=== PATIENT | female | born 1995 | race Caucasian/White ===

== ENCOUNTER → 2022-09-02 10:36 | Outpatient (CLI) | payer OTHER, SELFPAY ==
--- NOTE | 2022-09-02 | DI.US.S_ITS ---
PROCEDURE: US OB >= 14 WEEKS FETUS INDICATIONS: 20WK ANATOMY SCAN OUTSIDE/PRIOR DATING DATA: Last menstrual period (LMP): 03/21/2022. LMP-based estimated date of delivery (ANUEL): 12/26/2022. First dating scan (date and location): None listed. Estimated date of delivery (ANUEL) from first dating scan: Not applicable The calculations are made using the working ANUEL of 12/26/2022. TECHNIQUE: Real-time scanning was performed of the fetus, with image documentation and biometric measurements. Endovaginal scanning: Not performed COMPARISON: None. FINDINGS: General: A single living intrauterine gestation is present. Presentation: Vertex. Placenta: Placental position is posterior and to the right , without previa. Amniotic fluid index: 14.1 cm, normal range is 5-24 cm. Single deepest vertical pocket is 4.3 cm. heart rate: 147 beats per minute. Maternal cervical canal: 5.6 cm long. Normal lower limit is 2.5 cm. Report any funneling of internal cervical os: % of canal length, shape (U or V), width or any U-shaped funneling. biometrics: Biparietal diameter: 5.7 cm, 23 weeks 2 days Head circumference: 20.9 cm, 23 weeks 0 days Abdominal circumference: 18.0 cm, 22 weeks 6 days Femur length: 3.7 cm, 21 weeks 6 days Clinically estimated gestational age: 23 weeks 4 days Composite gestational age from present scan: 22 weeks 5 days Estimated weight and percentile: 511 g, 8th percentile Anatomic survey: Neuro: Ventricles are non-dilated at less than 10 mm. Cisterna magna is normal at 3-11 mm. Cerebellum is normal in size and morphology. Nuchal skin fold: Normal at less than 6 mm between 14-21 weeks gestational age. Face: Nose and lips, facial profile are normal. Spine: No evidence for spina bifida. Heart: 4-chambered heart is present, with normal ventricular outflow tracts. Diaphragm: Diaphragm is intact. Stomach: Left-sided stomach is present. Kidneys: No hydronephrosis. Normal is less than 5 mm in 2nd trimester, less than 7 mm in 3rd trimester. Cord: 3-vessel cord has orthotopic insertion. Bladder: Normal in size. Extremities: All 4 extremities identified. IMPRESSION: 1. Living 2nd trimester intrauterine with no sonographic evidence of complications. Current ultrasound age is 6 days less than clinical age based on LMP. 2. Normal 2nd trimester anatomy study. We strive to produce accurate, complete, and clear reports of imaging services. To assist us in improving patient care, this report was composed using standard report templates and voice recognition software. Therefore, it may contain abnormal punctuation, insertions and/or omissions. Occasional wrong-word or sound-alike substitutions may occur. Though we review the report and make efforts to correct it, we do recommend that the report be read carefully in proper context to recognize any text inaccuracies. Dictated by: Bello Hoyt M.D. on 09/02/2022 at 13:55 Approved by: Bello Hoyt M.D. on 09/02/2022 at 14:00
== END ==
PROVIDERS: Referring Provider Advanced Practice Midwife; Visit Provider Advanced Practice Midwife
DX: Z34.82 Encounter for supervision of other normal pregnancy, second trimester (principal); Z3A.22 22 weeks gestation of pregnancy
CPT/HCPCS: 76811

== ENCOUNTER 2022-11-28 10:15 | Observation (INO) | payer OTHER, SELFPAY ==
--- NOTE | 2022-11-28 10:31 | PM.OBTRLD ---
Visit Information Visit Information Date of evaluation: 11/28/22 Primary OB Provider: Beba Corrales On-call OB Provider: Annette Cordova Reason for Evaluation: Yes pre-term labor Comments/Additional reasons for admission: Kim is a 27YO @ 35 weeks 0 days by 9w US who presents for evaluation of contractions. Had contractions yesterday morning that eventually eased and again, but more painful this morning starting at 0100 and strengthening around 0630. +FM. No vaginal bleeding or leaking of fluid. Hx of term NSVB. Uncomplicated care with CNMs and planning a home . Vital Signs Vital Signs: BP 132/76, HR 106, T 35.8C Temporal PFSH Medical History (Updated 11/28/22 @ 12:19 by Annette Cordova CNM) Anxiety Migraines PTSD (post-traumatic stress disorder) Review of Systems Review of Systems ROS: Yes All systems reviewed with the patient and are negative except as otherwise documented Exam Vital Signs (past 8 hours): see above Presentation: vertex Objective Labs Labs: GBS PCR- Negative Evaluation Evaluation Baseline heart rate: 135 Variability: Moderate (11-25) monitor accelerations: Present Monitor Decelerations: Absent Contraction Frequency (minutes): 10 Uterine Contraction Intensity: Mild Category of Tracing: Reactive Cervical dilation (cm): 1 Cervical effacement (%): 50 station: -2 Comments: CE unchanged after 2 hours Diagnosis, Plan/Disposition Final Diagnosis (1) False labor before 37 completed weeks of gestation during in third trimester, antepartum: Status: Acute Plan/Disposition Plan: Reassurance given for no concern for labor at this time. Discharge to home with routine labor precautions. OB Disposition: home
[2022-11-28] MEDS: CALCIUM CARBONATE 500 MG TAB 1000 MG PO (11:18)
[2022-11-28 11:47] LABS: Strep Grp B PCR NEG for Grp B Strep
[2022-11-28 13:34] LABS: Appearance Urine UA CLEAR; Bilirubin Urine UA NEGATIVE (NEGATIVE); Color Urine UA YELLOW; Glucose Urine UA NEGATIVE (Negative); Ketones Urine UA NEGATIVE (NEGATIVE); Leukocyte Esterase Urine UA NEGATIVE (NEGATIVE); Nitrite Urine UA NEGATIVE (Negative); Occult Blood Urine UA NEGATIVE (Negative); Protein Urine UA NEGATIVE (Negative); Specific Gravity Urine UA 1.025 (1.000-1.035); Urobilinogen Urine UA 0.2 E.U./dL (0.2)
== END 2022-11-28 13:05 | disposition home or self-care (01) ==
LOC: LABOR 10:19
PROVIDERS: Admitting Provider Nurse Practitioner Obstetrics & Gynecology; Referring Provider Nurse Practitioner Obstetrics & Gynecology; Visit Provider Nurse Practitioner Obstetrics & Gynecology
DX: O47.03 False labor before 37 completed weeks of gestation, third trimester (principal); Z3A.35 35 weeks gestation of pregnancy
CPT/HCPCS: 59025; 59050; 81003; 87081; 87653; G0378; G0379

== ENCOUNTER 2022-12-24 12:14 | Inpatient (IN) | payer OTHER, SELFPAY ==
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
--- NOTE | 2022-12-24 13:19 | PM.CN ---
History of Present Illness Consult details Date Patient Seen: 12/24/22 Time Patient Seen: 13:19 Chief complaint: Induction Reason for consult: Induction for functional neurological disorder at 38 weeks 5 days Requesting provider: Annette Cordova Narrative: Patient is a 27-year-old who is being admitted for induction for concerns for episodes where the patient apparently loses consciousness for up to 30 minutes. She has been evaluated and it is thought they are not seizures. She does not have tonic-clonic motion. She does not have difficulty with breathing. EEG and vital sign monitoring performed at the [facility] show no abnormalities. She responds to pain stimuli. Sometimes she can respond to basic commands. These might be a form of migraine or a psychiatric reaction to stress. Patient and her provider are concerned about if she needs any emergency care during labor and is unable to respond that we are prepared ahead of time for that possibility. Patient also had discussed tubal ligation with Beba Corrales CNM several weeks ago and is absolutely sure she does not want more children so if she has a section she would like a bilateral salpingectomy. We discussed section for indications. Patient will continue to discuss with family and midwives if there is a point to proceed with section if the patient remains unresponsive for greater than 1and 1/2 hours. Consent form for section with bilateral salpingectomy reviewed with the patient. Risk of reaction to medication or anesthesia, infection, bleeding that could require blood transfusion which she is agreeable to, damage to internal structures such as bowel, bladder, ureters that could require repair or additional surgery. Patient is aware she will not be able to conceive a with her salpingectomy. Consent form signed and questions answered. Meds Home Medications and Allergies Home Medications Medication Instructions Recorded Confirmed Type escitalopram oxalate 5 mg PO DAILY depression 12/24/22 12/24/22 History Allergies Allergy/AdvReac Type Severity Reaction Status Date / Time No Known Drug Allergies Allergy Verified 11/28/22 11:15 Objective Labs 12/24/22 14:10 [facility] Medical History Anxiety Functional neurological symptom disorder with mixed symptoms Hypothyroid Migraines PTSD (post-traumatic stress disorder) Family History Grandfather Cancer Mother Hypothyroid Sister Depression Heart murmur Brother Heart murmur Assessment & Plan Assessment and plan (1) Functional neurological symptom disorder with mixed symptoms: Status: Acute (2) 38 weeks gestation of : Status: Acute Assessment & Plan narrative: Patient being induced for functional neurological disorder with worsening symptoms. Patient and her providers requested OB consultation and availability if needed. If there becomes a need for section and patient is unresponsive we preemptively signed consent form for section and tubal ligation.
[2022-12-24 14:16] VITALS: BP 124/88; PULSE 117; TEMP 36.3
[2022-12-24 15:45] LABS: Add Manual Diff / Slide Review NO; Basophils Absolute Auto 0 /uL (0-100); Basophils Percent Auto 0.6 % (0-2); Eosinophils Absolute Auto 0 /uL (0-450); Eosinophils Percent Auto 0.5 % (2-4); Hematocrit 36.8 % (36-46); Hemoglobin 12.6 g/dL (12.0-16.0); Lymphocytes Absolute Auto 2500 /uL (1100-4500); Lymphocytes Percent Auto 31.9 % (25-40); Mean Corpuscular HGB Conc 34.3 % (30-36); Mean Corpuscular Hemoglobin 30.8 PG (26-34); Monocytes Absolute Auto 700 /uL (0-900); Monocytes Percent Auto 9.5 % (3-14); Neutrophils Absolute Auto 4500 /uL (1500-7000); Neutrophils Percent Auto 57.5 % (50-75); Platelet Count 215 X10^3/uL (150-400); Red Blood Cell Count 4.09 X10^6/uL (4.0-5.2); Red Cell Distribution Width 13.5 % (11.6-14.8); White Blood Cell Count 7.9 X10^3/uL (4.5-11.0)
[2022-12-24] MEDS: OXYTOCIN PREMIX 30 UNIT/500 ML PLAST..BAG IV (16:08)
--- NOTE | 2022-12-24 17:06 | P.PNOB_ITS ---
Date/Time Date Patient Seen: 12/24/22 Time Patient Seen: 17:07 Pain Control Pain control: tolerating well Comments: Kim is resting comfortably in bed eating dinner, with her Myles at bedside. She is feeling good about induction process, has felt only a few notable contractions since starting pitocin infusion. Had an episode of non- epileptic seizure activity which included loss of motor control and eye fluttering at 1548, lasting for 5 minutes. Myles called RN to the bedside, vital signs remained stable and Kim was able to respond to questions again two minutes after resolution of episode. VS: BP: 117/77 mmHg HR: 99 bpm Sp02: 98% T: 36.3C Pelvic Exam Comments: CE deferred Contractions Monitor mode: External Pitocin rate (mU/min): 4 Contraction frequency (min): 10 (occasional) Contraction duration (min): 1 Contraction pattern: Irregular Contraction intensity: Mild Status status: Category l Heart Rate Baseline: 125 Monitor Accelerations: Present Monitor Decelerations: Absent Monitor Variability: Moderate Assessment and Plan Assessment: induction ongoing Plan: continuous present management Comments: A: Term multipara IOL, early labor Non-epileptic seizure, consistent with functional neurologic disorder No signs of infection FHR Cat 1 P: Continue Pitocin per protocol Labor support Encourage both rest and movement Discussed AROM as induction tool that can be considered if contractions do not intensify with Pitocin Reassess in 4 hours or sooner PRN
--- NOTE | 2022-12-24 21:06 | PM.OBPNLAB ---
Date/Time Date Patient Seen: 12/24/22 Time Patient Seen: 21:00 Pain Control Comments: Kim is walking in her labor room, starting to feel regular mild contractions. Physically feeling well, struggling with the boredom of waiting for labor to start, eager to get things going. VS: 138/82 mmHg P: 87 bpm RR: 19/min T: 36.6C Temportal Sp02: 97% Pelvic Exam Dilation (cm): 4.5 Effacement (%): 70 station: -3 Amniotic membrane status: Ruptured (AROM, clear, small amount) Contractions Monitor mode: External Pitocin rate (mU/min): 16 Contraction frequency (min): 4 Contraction duration (min): 1 Contraction pattern: Regular Contraction intensity: Mild Status status: Category ll Heart Rate Baseline: 130 Monitor Accelerations: Present Monitor Decelerations: Variable (occasional) Monitor Variability: Moderate Assessment and Plan Assessment: induction ongoing Plan: continuous present management Comments: A: Term multipara IOL onging, early labor Non-epileptic seizure consistent with functional neurologic disorder No signs of infection AROM, clear fluid FHR Cat1/2 P: Consented for AROM Continue Pitocin per protocol Encourage movement Labor support as desired by patient Reassess in 4 hours or sooner as needed
[2022-12-24] MEDS: fentaNYL 100 MCG/2 ML INJ IV (22:57)
[2022-12-24] MEDS: LACTATED RINGERS 1,000 ML 999 ML IV (22:58)
[2022-12-24] MEDS: FENT 2MCG/ML BUPIV 0.1% EPI 200 MCG/100 ML PLAST..BAG 10 MCG EPIDURAL (23:20)
--- NOTE | 2022-12-24 23:34 | PM.OBPNLAB ---
Date/Time Date Patient Seen: 12/24/22 Time Patient Seen: 22:20 Pain Control Comments: CNM called to room for patient poorly coping with labor, reporting frequent, short episodes, vertigo and loss of control. Patient sitting up in shower experiencing strong contractions every 2-3 minutes. Discussed options for pain relief and patient elected NO2 while awaiting epidural. Kim was assisted to bed and NO2 was initiated with minimal relief. Kim consented to fentanyl IV and 100mcg was administered IV prior to anesthesia arrival. Pitocin was shut off at this time. Kim remained responsive and aware. Epidural was placed with complete pain relief and Kim reported that her vertigo is improving. VS: BP 129/89, HR 99bpm, T 36.6C Temporal Pelvic Exam Dilation (cm): 7 Effacement (%): 100 station: -2 Amniotic membrane status: Leaking (clear) Contractions Monitor mode: External Pitocin rate (mU/min): 0 Contraction frequency (min): 3 Contraction duration (min): 1 Contraction pattern: Regular Contraction intensity: Strong/Firm Status status: Category ll Heart Rate Baseline: 115 Monitor Accelerations: Present Monitor Decelerations: Variable Monitor Variability: Moderate Assessment and Plan Assessment: active labor Plan: continuous present management Comments: Anticipate NSVB soon.
--- NOTE | 2022-12-24 23:37 | PM.ANES.PR ---
Operative Date/Time/Diagnoses Date of procedure: 12/24/22 Time of procedure: 22:59 Pre-op diagnosis: Labor pain Post-op diagnosis: same
--- NOTE | 2022-12-24 23:41 | PM.AN.REGBLK ---
Regional Block Pre-procedure Procedure: Continuous Lumbar Epidural for L&D Attending OB provider: Annette Cordova PMH/ROS narrative: patient is a 27 year old requesting labor epidural. Hx: No personal or family history of anesthesia problems. Exam narrative: Mallampati: 1, good neck ROM, T.M. > 3cm Labs: Hct 36.8 % (36-46) 12/24/22 14:10 Plt Count 215 X10^3/uL (150-400) 12/24/22 14:10 Medications: Current Medications Generic Name Dose Route Start Last Admin Trade Name Freq PRN Reason Stop Dose Admin Calcium Carbonate 1,000 mg 12/24/22 14:44 Calcium Carbonate 500 Mg Tab PO Q4HR PRN Dyspepsia Carboprost Tromethamine 250 mcg 12/24/22 14:44 Carboprost 250 Mcg/Ml Ampul IM Q90M PRN Bleeding Diphenhydramine HCl 25 mg 12/24/22 23:36 Diphenhydramine 50 Mg/Ml Vial IV Q10M PRN Pruritis Fentanyl 100 mcg 12/24/22 14:44 12/24/22 22:57 Fentanyl 100 Mcg/2 Ml Inj IV 100 mcg Q1H PRN Administration Pain, Severe (7-10) Oxytocin/Lactated Ringer's 30 unit in 500 mls @ 200 mls/hr 12/24/22 14:44 Oxytocin Premix IV CONT PRN Bleeding Protocol Tranexamic Acid 1,000 mg/ 100 mls @ 200 mls/hr 12/24/22 14:44 Sodium Chloride IV NOW PRN Bleeding Oxytocin/Lactated Ringer's 30 unit in 500 mls @ 2 mls/hr 12/24/22 14:45 12/24/22 16:08 Oxytocin Premix IV 2 milliunit/min TITRATE SILVANA 2 mls/hr Administration Protocol 2 MILLIUNIT/MIN Lactated Ringer's 1,000 mls @ 100 mls/hr 12/24/22 14:45 12/24/22 22:58 Lactated Ringers IV 999 mls/hr CONT SILVANA Administration FENT 2MCG/ML BUPIV 0.1% EPI 200 mcg in 100 mls @ 6 mls/hr 12/24/22 23:45 Fentanyl/Bupiv/Ns 2mcg/Ml - 0.1% EPIDURAL CONT SILVANA Lidocaine HCl 20 ml 12/24/22 14:44 Lidocaine 1% 20 Ml INJ INTRA-OP PRN Post Delivery Methylergonovine Maleate 0.2 mg 12/24/22 14:44 Methylergonovine 0.2 Mg Tablet PO Q6HR PRN Heavy Bleeding Methylergonovine Maleate 0.2 mg 12/24/22 14:44 Methylergonovine 0.2 Mg/Ml Vial IM NOW PRN Bleeding Misoprostol 800 mcg 12/24/22 14:44 Misoprostol 200 Mcg Tablet DC NOW PRN Bleeding Misoprostol 400 mcg 12/24/22 14:44 Misoprostol 200 Mcg Tablet SL NOW PRN Bleeding Naloxone HCl 0.2 mg 12/24/22 14:44 Naloxone 0.4 Mg/Ml Vial IV Q2MIN PRN Opiate Reversal Ondansetron HCl 4 mg 12/24/22 14:44 Ondansetron 4 Mg/2 Ml Inj IV Q4HR PRN Nausea And Vomiting Oxytocin 10 unit 12/24/22 14:44 Oxytocin 10 Unit/Ml Vial IM NOW PRN Bleeding Allergies: Allergies Allergy/AdvReac Type Severity Reaction Status Date / Time No Known Drug Allergies Allergy Verified 11/28/22 11:15 Procedure Insertion date: 12/24/22 Insertion time: 22:59 Prep/Local: 1% lidocaine (prep with Chloroprep) Interspace: L4-5 Patient position: sitting Needle: 18 gauge Shelia Loss of resistance with: saline WIN at (cm): 6 Catheter placed at SKIN (cm): 10 Catheter in SPACE (cm): 4 Sensory level: T10 Insertion: No CSF, No Blood, No Paresthesia with insertion, No Paresthesia with injection and No Test dose reaction Initial Medications TEST DOSE time: 23:09 TEST DOSE: 1.5% lidocaine with epinephrine 1:200k (mL): 5 BOLUS DOSE time: 23:10 BOLUS DOSE (mL): 5 BOLUS DOSE med: other (2% Lidocaine ) Infusion INFUSION: 0.125% bupivacaine and with fentanyl 2 mcg/mL Initial rate (mL/hr): 10 Post-procedure Anesthesia time START: 22:59 Anesthesia time END: 00:06 Post-procedure Anesthesia Assessment: Yes CV function: HR/BP stable, Yes Resp function: RR/sat/airway adequate, Yes Post-op hydration adequate, Yes Pain control adequate, Yes Nausea & vomiting absent, Yes Temperature > 36 C, Yes Mental status appropriate and Yes Anesthesia complications
--- NOTE | 2022-12-25 00:38 | PM.OBPRVD ---
Events: Labor Induction (for functional neurologic disorder complications) Labor & Delivery Delivery date: 12/25/22 Cervical ripening method: per Talavera bulb protocol Induction method: per pitocin protocol Delivery augmentation: rupture of membranes Delivery monitor: external FHT and external uterine Route of delivery: Episiotomy description: None L&D Laceration Description: None Quantitative Blood Loss: 30 Anesthesia Type: Epidural and Other (IV fentanyl, NO2) Narrative: Kim was induced with a talavera balloon, pitocin and AROM, for complications of a functional neurologic disorder. She progressed rapidly in labor after pitocin (max dose 16mu) and AROM. There were no signs of infection and total time ROM < 4hrs, clear fluid. Pitocin was turned off prior to epidural placement and remained off until after delivery. She felt intense rectal pressure and was C/C/+2. A short second stage led to NSVB of vigorous baby boy in SHAYNA position, delivered through a single loose nuchal cord, with easy delivery of shoulders over an intact perineum. Lagrange was placed on maternal abdomen for drying and skin to skin. Apgars 9/9. Pitocin 30 units in 500mL normal saline administered IV for AMSTL. Umbilical cord was double clamped by JOSE and cut by LORAINE Bueno when it had stopped pulsing. Cord traction and a single maternal push resulted in the delivery, Abiel, of an apparently intact placenta, membranes and three vessel cord. Fundus firm, deviated to the L, U-1. Straight cath for 200mL urine out. Pitocin increased to bolus rate for increased bleeding during recovery, TXA 1g given. QBL 380. Both mom and baby skin to skin and stable when I left the room. Lagrange Baby 1: Infant gender: Male Presentation: vertex Position: Left Occiput Anterior Placenta delivery description: Spontaneous Cord Vessel Description: 3 Vessels, Nuchal Cord and Loose score (1 min): 9 score (5 min): 9 weight: 3.394 kg Plan for aftercare: Routine care
[2022-12-25] MEDS: TRANEXAMIC ACID 1,000 MG in SODIUM CHLORIDE 0.9% 100 ML 200 MG IV (01:07)
[2022-12-25] MEDS: ACETAMINOPHEN 325 MG TABLET 650 MG PO ×3 (01:36→14:34)
[2022-12-25] MEDS: KETOROLAC 30 MG/ML VIAL IV (01:36)
[2022-12-25] MEDS: OXYCODONE IR 5 MG TABLET PO (03:06)
[2022-12-25] MEDS: IBUPROFEN 600 MG TABLET PO ×2 (07:40→14:34)
--- NOTE | 2022-12-25 17:43 | PM.OBDS.1 ---
Discharge Providers Provider Date of admission: 12/24/22 12:14 Discharge Date: 12/25/22 Primary care physician: Doctor Natalie MD Consults: 12/26/22 00:27 Consult to Wood Grinder Operator Routine Comment: Formula feeding Discharge provider: Annette Cordova CNM Summary Hospital Course Date Patient Seen: 12/25/22 Time Patient Seen: 17:44 Diagnoses: F44.7, O80, O99.93 Hospital Course: Day of delivery: NSVB with intact perineum. Ambulating and voiding independently. Tolerating a normal diet. Pain is well controlled with Tylenol and Motrin. Bleeding light, without clots. Formula feeding , feeling confident about heading home this evening. 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 She feels comfortable and safe managing these episodes, which are always precipitated by an aura and vertigo, with support of Myles and plan for grandma to help at home. Peripartum Data Infant Delivery Method: Natural Vaginal Laceration Description: None Episiotomy description: None Procedures: O80 complications: none Discharge Diagnosis (1) Functional neurological symptom disorder with mixed symptoms: Status: Acute Problem Details: Stable, rare short episodes while in-patient (2) 38 weeks gestation of : Status: Acute Problem Details: Routine course Status at Discharge Cognitive/behavioral status at discharge: at baseline, oriented Functional status at discharge: independent ambulation Overall status at discharge: patient is progressing back to baseline Time Spent with Patient Time attestation: Total time spent providing and/or coordinating discharge services: Objective Labs 12/24/22 14:10 Exam Vital Signs (past 8 hours): BP: 108/56 mmHg, HR: 87bpm, T: 36.4C, RR 17/min Other: Fundus firm, midline at U Lochia: small, rubra Perineum: intact, minimal edema Discharge Plan Discharge Plan Patient Disposition: Home Discharge orders & Medications Prescriptions: Discontinued escitalopram oxalate tablet 5 mg PO DAILY Follow up/Referrals: Doctor Estrada MD [Primary Care Provider] - Annette Cordova CNM [Advanced Telephone Operator Receptionist] - 2 Weeks (2 week PHONE CALL: 01/06/23 at 3:15 pm 6 week IN PERSON: 02/03/23 at 12:45 pm) Diet/Activity/Treatments Diet: Diet as Tolerated and Regular Diet comment: Hydration, high fiber Activity: Rest in and around bed for 2 weeks, pelvic rest 6 weeks Skin/Wound/Dressing Care Skin care: Gentle Report to your healthcare provider any signs of infection, such as:: chills, fever, increased pain, unusual drainage and unusual redness Visit Report/Discharge Packet Instructions: DI for Depression Stand Alone Forms: Patient Portal/API Discharge Data Primary Care Provider: Miscellaneous,Doctor
== END 2022-12-25 07:45 | disposition home or self-care (01) | DRG 807 ==
PROVIDERS: Admitting Provider Nurse Practitioner Obstetrics & Gynecology; Referring Provider Nurse Practitioner Obstetrics & Gynecology; Visit Provider Nurse Practitioner Obstetrics & Gynecology
DX: O75.89 Other specified complications of labor and delivery (principal); Z37.0 Single live birth; R29.818 Other symptoms and signs involving the nervous system; Z3A.38 38 weeks gestation of pregnancy; R56.9 Unspecified convulsions
CPT/HCPCS: 36415; 59050; 85025; 86850; 86900; 86901; 99232; G0379; J1885; J2590; J3010

== ENCOUNTER → 2023-02-18 11:46 | Outpatient (ROUT) | payer OTHER, SELFPAY ==
[2023-02-18 11:55] LABS: Hematocrit 41.2 % (36-46); Hemoglobin 14.1 g/dL (12.0-16.0); Mean Corpuscular HGB Conc 34.2 % (30-36); Mean Corpuscular Hemoglobin 30.4 PG (26-34); Mean Corpuscular Volume 88.7 fL (80-100); Platelet Count 296 X10^3/uL (150-400); Red Blood Cell Count 4.64 X10^6/uL (4.0-5.2); White Blood Cell Count 6.1 X10^3/uL (4.5-11.0)
== END ==
PROVIDERS: Visit Provider Nurse Practitioner Obstetrics & Gynecology
DX: N92.0 Excessive and frequent menstruation with regular cycle (principal)
CPT/HCPCS: 85027